=== PATIENT | male | born 1935 | race Caucasian/White ===

== ENCOUNTER 2019-06-29 11:11 | Inpatient (IN) | payer MEDICARE, BC ==
[~2019-06-29] VITALS: Ht 182.9 cm; Wt 99.8 kg
[~2019-06-29 11:11] MED LIST: SOTA80TA73 PO
[2019-06-29] MEDS ORDERED: diltiazem 5mg/ml 5ml inj. IV ONE (11:40)
[2019-06-29 12:13] LABS: BASOPHILS % (AUTO) 0.4 % (0-1); EOSINOPHILS % (AUTO) 0.8 % (0-6); HEMATOCRIT 38.4 % (42.0-52.0); HEMOGLOBIN 13.5 g/dl (14.0-17.9); LYMPHOCYTES # (AUTO) 0.5 X10'3 (1.1-4.8); LYMPHOCYTES % (AUTO) 8.7 % (21-51); MEAN CORPUSCULAR HEMOGLOBIN 34.9 PG (27.0-31.0); MEAN CORPUSCULAR HGB CONC 35.2 g/dL (33.0-36.5); MEAN CORPUSCULAR VOLUME 99.2 FL (78-98); MEAN PLATELET VOLUME 8.3 FL (7.4-10.4); MONOCYTES # (AUTO) 0.2 X10'3 (0-0.9); NEUTROPHILS # (AUTO) 5.2 X10'3 (1.8-7.7); NEUTROPHILS % (AUTO) 86.1 % (42-75); PLATELET COUNT 168 X10'3 (140-440); RED BLOOD COUNT 3.87 X10'6 (4.70-6.10); RED CELL DISTRIBUTION WIDTH 13.5 % (11.5-14.5)
[2019-06-29 12:18] LABS: ALANINE AMINOTRANSFERASE 25 U/L (12-78); ALBUMIN 3.9 G/DL (3.4-5.0); ALBUMIN/GLOBULIN RATIO 1.1 (1.1-1.5); ALKALINE PHOSPHATASE 60 IU/L (46-116); ANION GAP 8 (8-16); ASPARTATE AMINO TRANSFERASE 28 U/L (10-37); BILIRUBIN,TOTAL 0.9 MG/DL (0.1-1.0); BLOOD UREA NITROGEN 11 MG/DL (7-18); BUN/CREATININE RATIO 10.3 (5.4-32.0); CALCIUM 8.5 MG/DL (8.5-10.1); CHLORIDE 91 MMOL/L (99-107); CREATININE 1.07 MG/DL (0.60-1.10); GLUCOSE 150 MG/DL (70-104); POTASSIUM 3.4 MMOL/L (3.5-5.1); SODIUM 127 MMOL/L (135-145); TOTAL CARBON DIOXIDE 28.1 MMOL/L (24-32); TOTAL PROTEIN 7.3 G/DL (6.4-8.2); eGFR 66 ML/MIN
[2019-06-29 12:25] LABS: MAGNESIUM 1.7 MG/DL (1.5-2.4)
[2019-06-29] MEDS ORDERED: normal saline 1000ML IV soln IVB ONE (12:25)
[2019-06-29 13:20] LABS: CLARITY,URINE SLIGHTLY CLOUDY (Clear); COLOR,URINE YELLOW (Yellow); GLUCOSE, URINE NEGATIVE (Neg); KETONES,URINE TRACE mg/dl (Neg); LEUKOCYTE ESTERASE ,URINE NEGATIVE (Neg); NITRITES, URINE NEGATIVE (Neg); OCCULT BLOOD,URINE TRACE-LYSED (Neg); PH,URINE 7.5 (4.8-8.0); PROTEIN,URINE NEGATIVE (Neg)
[2019-06-29 13:21] LABS: UA COLLECTION TYPE URINAL
[2019-06-29 13:28] LABS: SQUAMOUS EPITHELIAL CELL,UR FEW /LPF (FEW)
[2019-06-29 13:29] LABS: WBC,URINE 0-4 /HPF (0-4)
[2019-06-29 13:30] LABS: BACTERIA,URINE FEW /HPF (Neg)
[2019-06-29 13:31] LABS: RBC,URINE 0-2 /HPF (0-2)
[2019-06-29] MEDS ORDERED: FLO0.4C PO (13:37)
[2019-06-29] MEDS ORDERED: FLEC100T2 PO (13:37)
[2019-06-29] MEDS ORDERED: PANT40TA4 PO (13:37)
[2019-06-29] MEDS ORDERED: ATOR40TA71 PO (13:37)
[2019-06-29] MEDS ORDERED: LOSA1TAB41 PO (13:37)
[2019-06-29] MEDS ORDERED: APIX5TAB3 PO (13:37)
[2019-06-29 13:39] LABS: AMORPHOUS PHOSPHATES 2+
[2019-06-29] MEDS ORDERED: ondansetron/PF 4mg/2ml inj IV PRN (13:45)
[2019-06-29] MEDS ORDERED: magnesium hydroxide 30ml (MOM) UD suspension PO PRN (13:45)
[2019-06-29] MEDS ORDERED: acetaminophen 325mg tablet PO PRN (13:45)
[2019-06-29] MEDS ORDERED: mag hydrox/Alum hydrox/simeth 30ml oral suspension PO PRN (13:45)
[2019-06-29] MEDS ORDERED: metoprolol tartrate 25mg tablet PO ONE (13:55)
[2019-06-29] MEDS: normal saline 1000ml 1,000 ML IV SCH ×2 (13:59→20:59)
[2019-06-29] MEDS ORDERED: potassium Cl 20 mEq SR tablet PO STA (14:06)
[2019-06-29 15:00] VITALS: BP 140/84
[2019-06-29 19:00] VITALS: BP 111/80
[2019-06-29] MEDS: apixaban 5mg tablet PO SCH (21:00)
[2019-06-29 23:00] VITALS: BP 114/76
[2019-06-30 03:00] VITALS: BP 114/76
[2019-06-30 03:24] VITALS: BP 114/85
[2019-06-30 06:00] VITALS: BP 124/82
[2019-06-30 06:11] LABS: BASOPHILS % (AUTO) 0.7 % (0-1); EOSINOPHILS # (AUTO) 0.5 X10'3 (0-0.9); HEMATOCRIT 34.7 % (42.0-52.0); HEMOGLOBIN 12.1 g/dl (14.0-17.9); LYMPHOCYTES # (AUTO) 1.3 X10'3 (1.1-4.8); LYMPHOCYTES % (AUTO) 22.5 % (21-51); MEAN CORPUSCULAR HEMOGLOBIN 34.6 PG (27.0-31.0); MEAN CORPUSCULAR HGB CONC 34.8 g/dL (33.0-36.5); MEAN CORPUSCULAR VOLUME 99.5 FL (78-98); MEAN PLATELET VOLUME 8.4 FL (7.4-10.4); MONOCYTES # (AUTO) 0.4 X10'3 (0-0.9); MONOCYTES % (AUTO) 6.2 % (2-12); NEUTROPHILS # (AUTO) 3.5 X10'3 (1.8-7.7); NEUTROPHILS % (AUTO) 61.6 % (42-75); PLATELET COUNT 162 X10'3 (140-440); RED BLOOD COUNT 3.48 X10'6 (4.70-6.10); RED CELL DISTRIBUTION WIDTH 13.6 % (11.5-14.5); WHITE BLOOD COUNT 5.7 X10'3 (4.5-11.0)
[2019-06-30] MEDS: apixaban 5mg tablet PO SCH (07:30)
[2019-06-30] MEDS: normal saline 1000ml 1,000 ML IV SCH (07:52)
[2019-06-30] MEDS ORDERED: pantoprazole 40mg Tablet.DR PO SCH (08:00)
[2019-06-30] MEDS ORDERED: HYDROchlorothiazide 12.5mg capsule PO SCH (08:00)
[2019-06-30] MEDS ORDERED: losartan 50mg tablet PO SCH (08:00)
[2019-06-30] MEDS ORDERED: atorvastatin 20mg tablet PO SCH (08:00)
[2019-06-30] MEDS ORDERED: metoprolol succinate 25mg (24-HOUR) SR. Tablet PO SCH (09:50)
[2019-06-30] MEDS ORDERED: metoprolol tartrate 12.5mg (1/2 tablet) PO SCH (09:50)
[2019-06-30] MEDS ORDERED: METO-395 PO (10:35)
[2019-06-30 11:00] VITALS: BP 128/86
== END 2019-06-30 11:45 | disposition home or self-care (01) | DRG 641 ==
LOC: ER 11:12 → ED HOLD 13:44 → PCU 3S 15:03
PROVIDERS: ADMIT Family Medicine; ATTEND Family Medicine
DX: E86.0 Dehydration (principal); R55 Syncope and collapse; E87.1 Hypo-osmolality and hyponatremia; E78.5 Hyperlipidemia, unspecified; I10 Essential (primary) hypertension; T46.2X5A Adverse effect of other antidysrhythmic drugs, initial encounter; I48.0 Paroxysmal atrial fibrillation; W07.XXXA Fall from chair, initial encounter; N40.0 Benign prostatic hyperplasia without lower urinary tract symptoms; S09.90XA Unspecified injury of head, initial encounter; Z79.01 Long term (current) use of anticoagulants; Y93.89 Activity, other specified; Y92.89 Other specified places as the place of occurrence of the external cause; Y99.8 Other external cause status
CPT/HCPCS: 36415; 70450; 70490; 71045; 72125; 80053; 81001; 83735; 83880; 84484; 85025; 87081; 93005; 93306; 96361; 96374; 99285; G0378; J3490; J7030

== ENCOUNTER 2020-06-05 09:09 | Emergency (ER) | payer MEDICARE, BC ==
[~2020-06-05] VITALS: Ht 177.8 cm; Wt 111.4 kg
[~2020-06-05 09:09] MED LIST changes: +APIX5TAB3 PO; +ATOR40TA71 PO; +FLO0.4C PO; +LOSA1TAB41 PO; +METO-395 PO; +PANT40TA54 PO; -SOTA80TA73 PO
[2020-06-05] MEDS ORDERED: normal saline 1000ML IV soln IVB ONE (09:35)
--- NOTE | 2020-06-05 09:35 | NUR ---
PT UNSURE WHAT DOSE OF METOPROLOL HE TAKES, STATED HE TAKES 40MG QD BUT CANNOT VERIFY.
--- NOTE | 2020-06-05 09:51 | NUR ---
PT REFUSED LABS, CXR AND IV FLUIDS. PT STATED NO DISTRESS AND STATED WILL CONTACT DR PONCE IF NEEDED.
[2020-06-05 09:52] VITALS: BP 90/62
== END 2020-06-05 10:04 | disposition left against medical advice (07) ==
LOC: ER 09:09
DX: R05 Cough (principal); R06.2 Wheezing; Z20.828 Contact with and (suspected) exposure to other viral communicable diseases; I48.91 Unspecified atrial fibrillation; Z98.890 Other specified postprocedural states; Z79.899 Other long term (current) drug therapy
CPT/HCPCS: 36415; 87502; 87503; 87635; 99283

== ENCOUNTER 2020-09-30 06:39 | Day surgery (SDC) | payer MEDICARE, BC ==
[~2020-09-30] VITALS: Ht 180.3 cm; Wt 110.5 kg
[2020-09-30] MEDS ORDERED: ZINC220C11 PO (07:20)
[2020-09-30] MEDS ORDERED: CHOL20002 PO (07:20)
[2020-09-30] MEDS ORDERED: LEVO50CA4 (07:20)
[2020-09-30] MEDS ORDERED: ASCO-139 PO (07:20)
[2020-09-30] MEDS ORDERED: VITA-268 PO (07:20)
[2020-09-30] MEDS ORDERED: MULT-1085 PO (07:20)
[2020-09-30] MEDS ORDERED: METO50TA16 (07:20)
[2020-09-30 08:07] VITALS: BP 89/53
[2020-09-30 09:06] VITALS: BP 107/52
== END 2020-09-30 09:25 | disposition home or self-care (01) ==
LOC: SSTAY O 06:39
PROVIDERS: ATTEND Radiology Diagnostic Radiology
DX: R59.0 Localized enlarged lymph nodes (principal); C85.95 Non-Hodgkin lymphoma, unspecified, lymph nodes of inguinal region and lower limb; Z79.01 Long term (current) use of anticoagulants; Z79.899 Other long term (current) drug therapy
CPT/HCPCS: 38505; 76942